=== PATIENT | male | born 1975 | race Caucasian/White ===

== ENCOUNTER 2017-05-20 11:30 | Emergency (ER) | payer OTHER ==
[~2017-05-20] VITALS: Ht 177.8 cm; Wt 98.3 kg
[2017-05-20] MEDS ORDERED: LISINOPRIL20 MG PO (14:02)
[2017-05-20] MEDS ORDERED: HYDROCHLOROTHIA25 MG PO (14:02)
[2017-05-20] MEDS ORDERED: METOPROLOL SUCC50 MG PO (14:02)
[2017-05-20] MEDS ORDERED: PRAVASTATIN SOD40 MG PO (14:03)
[2017-05-20] MEDS ORDERED: VICTOZA0.6 MG/0.1 SC (14:03)
[2017-05-20] MEDS ORDERED: TESTOSTERO200 MG/12 IM (14:04)
[2017-05-20] MEDS ORDERED: LEVEMIR FL100 UNIT/1 SC (14:04)
[2017-05-20] MEDS ORDERED: SEROQUEL200 MG PO (14:05)
[2017-05-20] MEDS ORDERED: DEPAKOTE ER500 MG PO ×2 (14:06)
[2017-05-20] MEDS ORDERED: CLONAZEPAM1 MG PO (14:08)
[2017-05-20] MEDS ORDERED: CIALIS5 MG PO (14:08)
[2017-05-20] MEDS ORDERED: ULTRAM50 MG PO (14:23)
[2017-05-20] MEDS ORDERED: MOTRIN600 MG PO (14:23)
[2017-05-20 14:35] VITALS: BP 115/67
== END 2017-05-20 14:24 | disposition home or self-care (01) ==
LOC: EME 11:30
DX: G62.9 Polyneuropathy, unspecified (principal); E11.9 Type 2 diabetes mellitus without complications; I10 Essential (primary) hypertension; Z87.891 Personal history of nicotine dependence; Z88.0 Allergy status to penicillin; Z88.5 Allergy status to narcotic agent
CPT/HCPCS: 73630; 99281; 99283